=== PATIENT | female | born 1935 | race Caucasian/White ===

== ENCOUNTER → 2019-03-07 | Outpatient (CLI) | payer OTHER ==
[2019-03-07 15:08] VITALS: BP 170/73
== END | disposition home or self-care (01) ==
LOC: WHH 10:30
PROVIDERS: ATTEND Surgery
DX: I83.012 Varicose veins of right lower extremity with ulcer of calf (principal); L97.211 Non-pressure chronic ulcer of right calf limited to breakdown of skin; R60.0 Localized edema; E03.9 Hypothyroidism, unspecified; K29.70 Gastritis, unspecified, without bleeding; K63.5 Polyp of colon; M12.9 Arthropathy, unspecified; M65.812 Other synovitis and tenosynovitis, left shoulder; Z88.0 Allergy status to penicillin; Z90.49 Acquired absence of other specified parts of digestive tract; Z98.49 Cataract extraction status, unspecified eye
CPT/HCPCS: 87070; A4450; A6021; A6196; G0463

== ENCOUNTER 2019-03-10 10:30 | Outpatient (CLI) | payer OTHER ==
[2019-03-10 11:51] VITALS: BP 164/56
== END 2019-03-10 17:00 | disposition home or self-care (01) ==
LOC: WHH 10:30
PROVIDERS: ATTEND Surgery
DX: I83.012 Varicose veins of right lower extremity with ulcer of calf (principal); L97.211 Non-pressure chronic ulcer of right calf limited to breakdown of skin; R60.0 Localized edema; E03.9 Hypothyroidism, unspecified; K29.70 Gastritis, unspecified, without bleeding; K63.5 Polyp of colon; M12.9 Arthropathy, unspecified; M65.812 Other synovitis and tenosynovitis, left shoulder; Z88.0 Allergy status to penicillin; Z90.49 Acquired absence of other specified parts of digestive tract; Z98.49 Cataract extraction status, unspecified eye
CPT/HCPCS: A6021; A6197; A6452; G0463

== ENCOUNTER → 2020-09-12 | Outpatient (CLI) | payer MEDICARE, OTHER | END | disposition home or self-care (01) | LOC: RAH 12:31 | PROVIDERS: ATTEND Family Medicine | DX: M16.11 Unilateral primary osteoarthritis, right hip (principal); M47.816 Spondylosis without myelopathy or radiculopathy, lumbar region; M41.86 Other forms of scoliosis, lumbar region; M48.061 Spinal stenosis, lumbar region without neurogenic claudication; M25.78 Osteophyte, vertebrae; M43.8X6 Other specified deforming dorsopathies, lumbar region; I70.90 Unspecified atherosclerosis; M25.551 Pain in right hip; M54.5 Low back pain; Z98.890 Other specified postprocedural states | CPT/HCPCS: 72100; 73502 ==